=== PATIENT | male | born 1960 | race Caucasian/White ===

== ENCOUNTER 2023-02-11 10:50 | Outpatient (CLI) | payer BC ==
[2023-02-11 16:12] LABS: ALBUMIN 4.2 g/dL (3.2-5.5); ALBUMIN/GLOBULIN RATIO 1.2 (1.0-2.2); ALKALINE PHOSPHATASE 75 IU/L (42-121); ALT ALANINE AMINOTRANSFERASE 14 IU/L (10-60); AST ASPARTATE AMINOTRANSFERASE 18 IU/L (10-42); BILIRUBIN,TOTAL 0.4 mg/dL (0.2-1.0); BUN - BLOOD UREA NITROGEN 21 mg/dL (6-20); CALCIUM 9.1 mg/dL (8.5-10.3); CARBON DIOXIDE - CO2 29 mmol/L (21-32); CHLORIDE 108 mmol/L (101-111); CHOL/HDL RATIO 4.4 (<5.0); CHOLESTEROL 226 mg/dL; CREATININE 0.9 mg/dL (0.6-1.2); GFR - MDRD 86 (>89); GLUCOSE 86 mg/dL (70-100); HDL CHOLESTEROL 51 mg/dL; LDL CHOLESTEROL,CALCULATED 152 mg/dL; POTASSIUM 3.9 mmol/L (3.5-5.0); SODIUM 142 mmol/L (135-145); TOTAL PROTEIN 7.7 g/dL (6.7-8.2); TRIGLYCERIDES 116 mg/dL; VLDL CHOLESTEROL 23 mg/dL
== END 2023-02-11 10:51 | disposition home or self-care (01) ==
LOC: LAB.S 10:50
PROVIDERS: ATTEND Internal Medicine
DX: E78.5 Hyperlipidemia, unspecified (principal); I10 Essential (primary) hypertension
CPT/HCPCS: 36415; 80053; 80061; 83721

== ENCOUNTER 2023-03-20 13:50 | Outpatient (CLI) | payer BC ==
[2023-03-20 19:47] LABS: BASOPHILS # (AUTO) 0.1 10^3/uL (0.0-0.1); BASOPHILS % (AUTO) 0.5 %; EOSINOPHILS # (AUTO) 0.1 10^3/uL (0.0-0.7); EOSINOPHILS % (AUTO) 1.1 %; HCT - HEMATOCRIT 41.1 % (42.0-52.0); HGB - HEMOGLOBIN 13.1 g/dL (14.0-18.0); LYMPHOCYTES # (AUTO) 1.2 10^3/uL (1.5-3.5); LYMPHOCYTES % (AUTO) 11.2 %; MEAN CORPUSCULAR HEMOGLOBIN 31.3 pg (27.0-31.0); MEAN CORPUSCULAR HGB CONC 31.9 g/dL (32.0-36.0); MEAN CORPUSCULAR VOLUME 98.1 fL (80.0-94.0); MEAN PLATELET VOLUME 10.2 fL (7.4-11.4); MONOCYTES # (AUTO) 1.1 10^3/uL (0.0-1.0); MONOCYTES % (AUTO) 10.3 %; NEUTROPHILS # (AUTO) 8.3 10^3/uL (1.5-6.6); NEUTROPHILS % (AUTO) 76.6 %; PLT - PLATELET COUNT 253 10^3/uL (130-450); RED BLOOD COUNT 4.19 10^6/uL (4.70-6.10); RED CELL DISTRIBUTION WIDTH 12.3 % (12.0-15.0); WHITE BLOOD COUNT 10.8 x10^3/uL (4.8-10.8)
[2023-03-20 20:22] LABS: ALKALINE PHOSPHATASE 76 IU/L (42-121); ALT ALANINE AMINOTRANSFERASE 14 IU/L (10-60); AST ASPARTATE AMINOTRANSFERASE 17 IU/L (10-42); BILIRUBIN,TOTAL 1.2 mg/dL (0.2-1.0); BUN - BLOOD UREA NITROGEN 22 mg/dL (6-20); CALCIUM 8.6 mg/dL (8.5-10.3); CARBON DIOXIDE - CO2 28 mmol/L (21-32); CHLORIDE 107 mmol/L (101-111); CHOL/HDL RATIO 2.5 (<5.0); CHOLESTEROL 100 mg/dL; CREATININE 0.9 mg/dL (0.6-1.2); GFR - MDRD 85 (>89); GLUCOSE 93 mg/dL (70-100); HDL CHOLESTEROL 40 mg/dL; LDL CHOLESTEROL,CALCULATED 44 mg/dL; LDL/HDL RATIO 1.1 (<3.6); POTASSIUM 3.9 mmol/L (3.5-5.0); SODIUM 140 mmol/L (135-145); TRIGLYCERIDES 82 mg/dL; VLDL CHOLESTEROL 16 mg/dL
[2023-03-20 20:28] LABS: THYROID STIMULATING HORMONE 1.27 uIU/mL (0.34-5.60)
[2023-03-20 20:48] LABS: ESTIMATED AVERAGE GLUCOSE 114 mg/dL (70-100); HEMOGLOBIN A1c% 5.6 % (4.27-6.07)
[2023-03-22 06:10] LABS: HIV SCREEN 4TH GENERATION Non Reactive (Non Reactive)
== END 2023-03-20 13:51 | disposition home or self-care (01) ==
LOC: LAB.S 13:50
PROVIDERS: ATTEND Family Medicine
DX: Z00.00 Encounter for general adult medical examination without abnormal findings (principal); Z12.5 Encounter for screening for malignant neoplasm of prostate; E21.3 Hyperparathyroidism, unspecified; Z11.4 Encounter for screening for human immunodeficiency virus [HIV]
CPT/HCPCS: 36415; 80053; 80061; 83036; 83721; 83970; 84153; 84443; 85025; 87389

== ENCOUNTER 2023-04-16 07:00 | Outpatient (CLI) | payer BC ==
--- NOTE | 2023-04-17 12:43 | XRAY Report ---
PROCEDURE: Wrist 3 View RT INDICATIONS: RIGHT WRIST PAIN TECHNIQUE: 3 views of the wrist were acquired. COMPARISON: None. FINDINGS: Bones: No fractures or dislocations. No suspicious bony lesions. Mild osteoarthritic changes at the radiocarpal joint, triscaphe joint and first carpal metacarpal joint. Soft tissues: No suspicious soft tissue calcifications or masses. Mild soft tissue swelling noted. IMPRESSION: 1. No acute osseous abnormalities. There is soft tissue swelling. If clinical symptoms persist, consi pollo advanced imaging such as CT or MRI for further evaluation. 2. Mild osteoarthritis. Reviewed by: Merlin Kan MD on 04/17/2023 12:42 PM PDT Approved by: Merlin Kan MD on 04/17/2023 12:42 PM PDT Station ID: [id number]
== END 2023-04-16 23:59 | disposition home or self-care (01) ==
LOC: DI.S 07:00
PROVIDERS: ATTEND Nurse Practitioner
DX: M19.031 Primary osteoarthritis, right wrist (principal)

== ENCOUNTER 2024-01-08 11:43 | Outpatient (CLI) | payer BC ==
--- NOTE | 2024-01-08 13:35 | Ultrasound Report ---
PROCEDURE: Renal (Retroperitoneal) INDICATIONS: RECURRENT KIDNEY STONES TECHNIQUE: Real-time scanning was performed of the retroperitoneal organs, with image documentation. COMPARISON: None. FINDINGS: Kidneys: Kidneys are normal in size. Right kidney measures 11.0 cm long; left kidney measures 12.0 cm long. Right renal cortical thickness is 0.9 cm; left renal cortical thickness is 0.7 cm. No tru d masses, hydronephrosis. Nonobstructing nephrolithiasis in the superior calyx of the left kidney joy suring 5 mm. No complex renal cystic lesions which require follow-up. Bladder: Pre-void bladder volume is 224 mL. Post-void residual is 37 mL. Pre-void images demonstra te no intraluminal masses or stones. On pre-void images, both ureteral jets are noted with color Dop pler interrogation. (Of note, ureteral jets may not be detectable in up to 25% of cases due to insuf ficient differences in specific gravity between ureteral and bladder urine). Miscellaneous: No free abdominal fluid. Prostatomegaly, measuring 4.1 x 3.2 x 3.8 cm. IMPRESSION: 5 mm nonobstructing nephrolithiasis on the left. Prostatomegaly. No significant post void residual. Reviewed by: Fernando Rendon MD on 01/08/2024 1:33 PM PST Approved by: Fernando Rendon MD on 01/08/2024 1:33 PM PST Station ID: [id number]
== END 2024-01-08 11:44 | disposition home or self-care (01) ==
LOC: DI 11:43
PROVIDERS: ATTEND Urology
DX: N20.0 Calculus of kidney (principal); N40.0 Benign prostatic hyperplasia without lower urinary tract symptoms

== ENCOUNTER 2024-01-12 07:20 | Day surgery (SDC) | payer BC ==
[2024-01-12] MEDS: LACTATED RINGERS 1,000 ML IV ONE ×2 (07:42→09:45)
--- NOTE | 2024-01-12 08:38 | ANESTHESIA ---
Pre-Anesthesia VS, & Labs - Diagnosis GERD, screening exam - Procedure EGD and Colonoscopy Height: 6 ft 2 in Weight (kg): 84.3 kg Body Mass Index: 23.8 BMI Classification: Normal - NPO >8 hours Home Medications and Allergies Home Medications: Ambulatory Orders Aspirin [Tusayan Aspirin] 81 mg ORAL DAILY 01/12/24 Clopidogrel Bisulfate [Plavix] 75 mg ORAL DAILY 01/12/24 Eszopiclone [Lunesta] 3 mg ORAL PRN PRN 01/12/24 Metoprolol Succinate [Toprol Xl] 25 mg PO DAILY 01/12/24 amLODIPine [Norvasc] 2.5 mg ORAL DAILY 01/12/24 Aspirin [Tusayan Aspirin] 81 mg ORAL DAILY 01/12/24 Clopidogrel Bisulfate [Plavix] 75 mg ORAL DAILY 01/12/24 Eszopiclone [Lunesta] 3 mg ORAL PRN PRN 01/12/24 Metoprolol Succinate [Toprol Xl] 25 mg PO DAILY 01/12/24 amLODIPine [Norvasc] 2.5 mg ORAL DAILY 01/12/24 Anes History & Medical History - Anesthetic History Anesthesia Complications: reports: No previous complications - Medical History Cardiovascular: reports: Hypertension, High cholesterol, Coronary artery disease Pulmonary: reports: Sleep apnea (does not use cpap) Gastrointestinal: reports: Diverticulitis Urinary: reports: Kidney stones Neuro: reports: Other (trigeminal neuralgia) Musculoskeletal: reports: None Endocrine/Autoimmune: reports: None Blood Disorders: reports: None Skin: reports: None Smoking Status: Never smoker Psychosocial: reports: No issues indicated History of Cancer?: No - Surgical History General: reports: Other Cardiothoracic: reports: Coronary stent Other Past Surgical History: Lithotripsy Exam General: Alert, Oriented x3, Cooperative, No acute distress Dental: WNL Mouth Openin Fingerbreadth Neck Mobility: Reduced Mallampati classification: II Thyromental Distance: 4-6 cm Mental/Cognitive Status: Alert/Oriented X3, Normal for patient Plan Anesthesia Type: General, Total IV Consent for Procedure(s) Verified and Reviewed: Yes Code Status: Attempt Resuscitation ASA classification: 3-Severe systemic disease Is this case an emergency?: No
[2024-01-12] MEDS ORDERED: LIDOCAINE-MPF 2% 5 ML VIAL ONE (09:03)
[2024-01-12] MEDS ORDERED: PROPOFOL 500 MG/50 ML 500 MG/50 ML VIAL ONE (09:03)
[2024-01-12] MEDS ORDERED: MIDAZOLAM 2 MG/2 ML VIAL ONE (09:04)
--- NOTE | 2024-01-12 10:04 | ANESTHESIA POST OP EVALUATION ---
Anesthesia Post Eval - Post Anesthesia Eval Vitals: Last Vital Signs Temp 36.2 C L 01/12/24 10:00 Pulse 67 01/12/24 10:00 Resp 16 01/12/24 10:00 BP 117/71 01/12/24 10:00 Pulse Ox 97 01/12/24 10:00 O2 Flow Rate CV Function Including HR & BP: Stable Pain Control: Satisfactory Nausea & Vomiting: Negative Mental Status: Baseline Respiratory Status: Airway Patent Hydration Status: Satisfactory Anesthesia Complications: None
[2024-01-12 11:01] VITALS: BP 139/87; O2SAT 100
== END 2024-01-12 07:21 | disposition home or self-care (01) ==
LOC: SDS 07:20
PROVIDERS: ATTEND Surgery
PROC: 0DB78ZX Excision of Stomach, Pylorus, Via Natural or Artificial Opening Endoscopic, Diagnostic (ICD-10-PCS; principal; 2024-01-12 09:00)
PROC: 0DBK8ZZ Excision of Ascending Colon, Via Natural or Artificial Opening Endoscopic (ICD-10-PCS; 2024-01-12 09:00)
DX: Z12.11 Encounter for screening for malignant neoplasm of colon (principal); D12.2 Benign neoplasm of ascending colon; K57.30 Diverticulosis of large intestine without perforation or abscess without bleeding; K64.1 Second degree hemorrhoids; K21.9 Gastro-esophageal reflux disease without esophagitis; K44.9 Diaphragmatic hernia without obstruction or gangrene; K29.50 Unspecified chronic gastritis without bleeding; R12 Heartburn; I25.10 Atherosclerotic heart disease of native coronary artery without angina pectoris; I10 Essential (primary) hypertension; Z95.5 Presence of coronary angioplasty implant and graft; Z90.49 Acquired absence of other specified parts of digestive tract; Z79.82 Long term (current) use of aspirin; Z79.02 Long term (current) use of antithrombotics/antiplatelets
CPT/HCPCS: 43239; 45380; J7120

== ENCOUNTER 2024-07-19 12:00 | Outpatient (CLI) | payer BC ==
[2024-07-19 12:25] LABS: ALBUMIN 4.6 g/dL (3.2-5.5); ALBUMIN/GLOBULIN RATIO 1.6 (1.0-2.2); ALKALINE PHOSPHATASE 92 IU/L (42-121); ALT ALANINE AMINOTRANSFERASE 12 IU/L (10-60); AST ASPARTATE AMINOTRANSFERASE 15 IU/L (10-42); BILIRUBIN,TOTAL 0.8 mg/dL (0.2-1.0); BUN - BLOOD UREA NITROGEN 19 mg/dL (6-20); CALCIUM 9.4 mg/dL (8.5-10.3); CARBON DIOXIDE - CO2 30 mmol/L (21-32); CHLORIDE 104 mmol/L (101-111); CHOLESTEROL 119 mg/dL; GFR - MDRD 75 (>89); GLUCOSE 105 mg/dL (74-104); HDL CHOLESTEROL 40 mg/dL; LDL CHOLESTEROL,CALCULATED 63 mg/dL; LDL/HDL RATIO 1.6 (<3.6); POTASSIUM 4.1 mmol/L (3.5-4.5); SODIUM 138 mmol/L (135-145); TOTAL PROTEIN 7.5 g/dL (6.4-8.9); TRIGLYCERIDES 80 mg/dL; VLDL CHOLESTEROL 16 mg/dL
[2024-07-19 12:40] LABS: THYROID STIMULATING HORMONE 1.25 uIU/mL (0.34-5.60)
== END 2024-07-19 12:01 | disposition home or self-care (01) ==
LOC: LAB 12:00
DX: Z95.5 Presence of coronary angioplasty implant and graft (principal)
CPT/HCPCS: 36415; 80053; 80061; 83721; 84443

== ENCOUNTER 2024-07-19 14:07 | Outpatient (CLI) | payer BC ==
--- NOTE | 2024-07-19 17:18 | Ultrasound Report ---
PROCEDURE: Renal (Retroperitoneal) INDICATIONS: RECURRENT KIDNEY STONES TECHNIQUE: Real-time scanning was performed of the retroperitoneal organs, with image documentation. COMPARISON: Retroperitoneal ultrasound 01/08/2024 FINDINGS: Kidneys: Kidneys are normal in size. Right kidney measures 10.9 cm long; left kidney measures 11.4 cm long. Right renal cortical thickness is 1.0 cm; left renal cortical thickness is 1.0 cm. Right plummer perior 0.9 x 0.5 x 0.8 cm simple cyst. Right midpole 1.5 x 1.7 x 1.7 cm simple cyst. Left mid pole 1. 0 x 1.1 x 1.1 cm simple cyst. Left medial 0.8 x 0.5 x 0.7 cm simple cyst. Nonobstructing right 5 mm m id calyceal calculus. Nonobstructing left 5 mm superior calyceal calculus. No hydronephrosis. Bladder: Pre-void bladder volume is 67 mL. Post-void residual is 0 mL. Pre-void images demonstrate no intraluminal masses or stones. On pre-void images, bilateral ureteral jets are noted with color Doppler interrogation. (Of note, ureteral jets may not be detectable in up to 25% of cases due to in sufficient differences in specific gravity between ureteral and bladder urine). Miscellaneous: No free abdominal fluid. IMPRESSION: 1.No sonographic evidence of hydronephrosis. 2.Bilateral 5 mm nonobstructive calyceal nephrolithiasis. 3.No evidence of urinary retention. Reviewed by: Renato Agustin MD on 07/19/2024 5:16 PM PDT Approved by: Renato Agustin MD on 07/19/2024 5:16 PM PDT Station ID: [id number]
== END 2024-07-19 14:08 | disposition home or self-care (01) ==
LOC: DI 14:07
PROVIDERS: ATTEND Urology
DX: N20.0 Calculus of kidney (principal); Z95.5 Presence of coronary angioplasty implant and graft
CPT/HCPCS: 36415; 80053; 80061; 83721; 84443